=== PATIENT | male | born 1975 | race Two or more races ===

== ENCOUNTER 2017-02-28 13:49 | Emergency (ER) | payer OTHER ==
[~2017-02-28] VITALS: Ht 170.2 cm; Wt 88.0 kg
[~2017-02-28 13:49] MED LIST: NO CURRENT MEDS
[2017-02-28 13:53] VITALS: BP 136/85
== END 2017-02-28 14:53 | disposition home or self-care (01) ==
LOC: ER 13:51
DX: L02.415 Cutaneous abscess of right lower limb (principal); F17.200 Nicotine dependence, unspecified, uncomplicated; F10.10 Alcohol abuse, uncomplicated; Z90.89 Acquired absence of other organs
CPT/HCPCS: 10060; 99283; A4606; Z7610